=== PATIENT | female | born 1965 | race Hispanic/Latino ===

== ENCOUNTER → 2018-02-25 | Outpatient (CLI) | payer OTHER ==
[2018-02-25 17:04] LABS: ESTIMATED AVERAGE GLUCOSE 137 MG/DL (60-110); HEMOGLOBIN A1c 6.4 %
[2018-02-25 17:32] LABS: ALBUMIN 3.2 GM/DL (3.2-5.2); ALBUMIN/GLOBULIN RATIO 0.84 (1.00-1.93); ALKALINE PHOSPHATASE 129 U/L (45-117); ALT/SGPT 19 U/L (12-78); ANION GAP 7 MEQ/L (8-16); AST/SGOT 13 U/L (7-37); BILIRUBIN,TOTAL 0.3 MG/DL (0.2-1.0); BLOOD UREA NITROGEN 17 MG/DL (7-18); C REACTIVE PROTEIN QUANTITATIV 1.71 MG/DL (0.00-0.30); CALCIUM LEVEL 8.6 MG/DL (8.5-10.1); CARBON DIOXIDE LEVEL 25 MEQ/L (21-32); CHLORIDE LEVEL 107 MEQ/L (98-107); CREATININE FOR GFR 0.83 MG/DL (0.55-1.30); GLOMERULAR FILTRATION RATE > 60.0 (>51); GLUCOSE, FASTING 143 MG/DL (70-100); RHEUMATOID FACTOR QUANT < 10.0 IU/ML (<15.0); SODIUM LEVEL 139 MEQ/L (136-145)
[2018-02-25 17:34] LABS: ERYTHROCYTE SEDIMENTATION RATE 35 mm/hr (0-30)
[2018-02-27 10:18] LABS: ANTI DOUBLE STRAND-DNA AB <1 IU/mL (0-9); ANTINUCLEAR ANTIBODIES DIRECT Negative (Negative)
== END ==
LOC: M WUC 15:03
DX: Z13.9 Encounter for screening, unspecified (principal); M25.50 Pain in unspecified joint; E66.9 Obesity, unspecified
CPT/HCPCS: 84443

== ENCOUNTER → 2018-04-26 | Outpatient (REF) | payer OTHER ==
[2018-04-26 13:43] LABS: ERYTHROCYTE SEDIMENTATION RATE 30 mm/hr (0-30)
[2018-04-26 14:56] LABS: FOLATE 7.7 NG/ML; VITAMIN B12 LEVEL 489 PG/ML
[2018-04-26 15:29] LABS: RHEUMATOID FACTOR QUANT < 10.0 IU/ML (<15.0)
[2018-04-27 11:15] LABS: DRVV SCREEN 45.3 SEC
[2018-04-27 11:25] LABS: PTT LUPUS TYPE ANTICOAG SCREEN 1.1 (0-1.2)
[2018-05-03 08:59] LABS: ANTINUCLEAR ANTIBODIES DIRECT Negative (Negative); VITAMIN B1 LEVEL WHOLE BLOOD 147.4 nmol/L (66.5-200.0); VITAMIN B6,PYRIDOXAL PHOSPHATE 4.5 ug/L (2.0-32.8); VITAMIN E(GAMMA TOCOPHEROL) 1.7 mg/L (0.5-5.5)
== END ==
LOC: M LABNEURO 10:57
DX: M54.5 Low back pain (principal); M54.2 Cervicalgia

== ENCOUNTER → 2018-06-24 | Outpatient (REF) | payer OTHER ==
[2018-06-24 15:40] LABS: ESTIMATED AVERAGE GLUCOSE 134 MG/DL (60-110); HEMOGLOBIN A1c 6.3 %
[2018-06-24 15:43] LABS: ERYTHROCYTE SEDIMENTATION RATE 33 mm/hr (0-30)
[2018-06-24 15:49] LABS: C REACTIVE PROTEIN QUANTITATIV 1.65 MG/DL (0.00-0.30)
== END ==
LOC: M LAB REF 12:44
DX: Z13.9 Encounter for screening, unspecified (principal)

== ENCOUNTER → 2018-07-23 | Outpatient (CLI) | payer OTHER ==
[2018-07-23 16:22] LABS: HEMOGLOBIN 13.1 g/dl (12.0-15.5); MEAN CORPUSCULAR VOLUME 84.4 fl (80.0-96.0); PLATELET COUNT, AUTOMATED 319 10^3/uL (150-450); RED BLOOD COUNT 4.86 10^6/uL (4.00-5.40); RED CELL DISTRIBUTION WIDTH 14.7 % (11.5-14.5); WHITE BLOOD COUNT 12.2 10^3/uL (4.0-10.0)
[2018-07-23 16:40] LABS: ANION GAP 9 MEQ/L (8-16); BLOOD UREA NITROGEN 15 MG/DL (7-18); CARBON DIOXIDE LEVEL 23 MEQ/L (21-32); CHLORIDE LEVEL 108 MEQ/L (98-107); CHOLESTEROL LEVEL 165 MG/DL (<200); CHOLESTEROL RISK RATIO 4.342 (<5); CREATININE FOR GFR 0.76 MG/DL (0.55-1.30); GLOMERULAR FILTRATION RATE > 60.0 (>51); GLUCOSE, FASTING 82 MG/DL (70-100); HDL CHOLESTEROL 38 MG/DL (>40); LDL CHOLESTEROL 102 MG/DL (<100); NON-HDL-C 127 MG/DL; POTASSIUM SERUM 4.9 MEQ/L (3.5-5.1); SODIUM LEVEL 140 MEQ/L (136-145); TRIGLYCERIDES LEVEL 124 MG/DL (<150); TROPONIN I < 0.02 NG/ML (< 0.10)
== END ==
LOC: M LAB 15:12
DX: R07.9 Chest pain, unspecified (principal); E11.9 Type 2 diabetes mellitus without complications
CPT/HCPCS: 80061

== ENCOUNTER → 2020-04-19 | Outpatient (REF) | payer OTHER, MEDICAID ==
[2020-04-19 15:01] LABS: ALBUMIN 3.3 GM/DL (3.2-5.2); ALT/SGPT 24 U/L (12-78); BILIRUBIN,TOTAL 0.3 MG/DL (0.2-1.0); BLOOD UREA NITROGEN 15 MG/DL (7-18); CALCIUM LEVEL 9.2 MG/DL (8.5-10.1); CARBON DIOXIDE LEVEL 24 MEQ/L (21-32); CHLORIDE LEVEL 107 MEQ/L (98-107); CHOLESTEROL LEVEL 149 MG/DL (<200); GLOMERULAR FILTRATION RATE > 60.0 (>51); GLUCOSE, FASTING 173 MG/DL (70-100); HDL CHOLESTEROL 39 MG/DL (>40); LDL CHOLESTEROL 89 MG/DL (<100); NON-HDL-C 110 MG/DL; POTASSIUM SERUM 4.5 MEQ/L (3.5-5.1); SODIUM LEVEL 139 MEQ/L (136-145); TOTAL PROTEIN 7.3 GM/DL (6.4-8.2); TRIGLYCERIDES LEVEL 104 MG/DL (<150)
[2020-04-19 15:26] LABS: HEMOGLOBIN A1c 6.9 %
== END ==
LOC: M LAB REF 12:19
PROVIDERS: ATTEND Family Medicine Addiction Medicine
DX: Z00.01 Encounter for general adult medical examination with abnormal findings (principal); J45.30 Mild persistent asthma, uncomplicated; R73.03 Prediabetes

== ENCOUNTER → 2020-06-15 | Outpatient (CLI) | payer OTHER, MEDICAID ==
--- NOTE | 2020-07-09 17:38 | REP ---
LEFT ANKLE STUDY CLINICAL: Pain. TECHNIQUE: AP, lateral, and bilateral oblique of the left ankle. FINDINGS: Soft tissue swelling and age-related changes are appreciated. Ankle mortise appears intact. No definite acute fracture or dislocation is appreciated, although subtle injury cannot be excluded due to the overlying degenerative changes. IMPRESSION: Mild swelling and degenerative age-related changes. No obvious acute fracture or dislocation. If the patient remains symptomatic and there is a history of injury, consider CT for further investigation. GRADY
== END ==
LOC: M RAD 13:20
PROVIDERS: ATTEND Family Medicine Addiction Medicine
DX: M25.572 Pain in left ankle and joints of left foot (principal)

== ENCOUNTER → 2020-08-29 | Outpatient (REF) | payer OTHER, MEDICAID ==
[2020-08-29 13:42] LABS: HEMOGLOBIN A1c 6.4 %
[2020-08-29 14:00] LABS: ALBUMIN 3.4 GM/DL (3.2-5.2); ALT/SGPT 22 U/L (12-78); BILIRUBIN,TOTAL 0.5 MG/DL (0.2-1.0); BLOOD UREA NITROGEN 16 MG/DL (7-18); CALCIUM LEVEL 9.3 MG/DL (8.5-10.1); CARBON DIOXIDE LEVEL 24 MEQ/L (21-32); CHLORIDE LEVEL 107 MEQ/L (98-107); CHOLESTEROL LEVEL 178 MG/DL (<200); CHOLESTEROL RISK RATIO 3.869 (<5); CREATININE FOR GFR 0.86 MG/DL (0.55-1.30); GLOMERULAR FILTRATION RATE > 60.0 (>51); GLUCOSE, FASTING 117 MG/DL (70-100); HDL CHOLESTEROL 46 MG/DL (>40); LDL CHOLESTEROL 111 MG/DL (<100); NON-HDL-C 132 MG/DL; POTASSIUM SERUM 4.7 MEQ/L (3.5-5.1); SODIUM LEVEL 139 MEQ/L (136-145); TOTAL PROTEIN 7.6 GM/DL (6.4-8.2); TRIGLYCERIDES LEVEL 104 MG/DL (<150)
== END ==
LOC: M LAB REF 12:35
PROVIDERS: ATTEND Family Medicine Addiction Medicine
DX: R73.03 Prediabetes (principal)

== ENCOUNTER → 2021-01-23 | Outpatient (CLI) | payer OTHER ==
--- NOTE | 2021-01-24 16:45 | SLEEPHOME ---
DIAGNOSTIC HOME SLEEP STUDY DATE: 01/23/2021 ORDERED BY: RIAN Dial[facility] home sleep testing was performed due to concern for the obstructive sleep apnea syndrome in this patient with a history of excessive somnolence, snoring, and nonrestorative sleep. For testing, a nocturnal T3 respiratory monitoring device was used. Continuous record was made of pulse, oxygen saturation, air flow, chest and abdominal strain, and body position. 9 hours and 59 minutes of data were reviewed. There were 9 hours and 10 minutes marked as time in bed. During the interval marked time in bed, there were 56 respiratory events identified of 10 seconds in duration or greater for a respiratory event index 6.1. The events were obstructive, not exclusive to sleep position. Baseline pulse rate 68. Pulse rate range 53 to 164. Baseline saturation was 94%. Saturations fell to 80%. Testing was performed in both the supine and non-supine positions. IMPRESSION: Abnormal home sleep testing with repetitive respiratory events and oxygen desaturations to 80% with a respiratory event index of 6.1 is consistent with the obstructive sleep apnea syndrome. RECOMMENDATION: The patient should be encouraged to undergo further formal sleep evaluation.
== END ==
LOC: M SLEEP HO 14:06
PROVIDERS: ATTEND Nurse Practitioner Family
DX: R06.83 Snoring (principal)

== ENCOUNTER → 2021-02-01 | Outpatient (CLI) | payer OTHER ==
--- NOTE | 2021-02-01 08:24 | REP ---
INDICATION: LLQ PAIN COMPARISON: None. TECHNIQUE: Real time montanez scale ultrasound examination using curved array transducer. FINDINGS: The spleen is normal in contour and echogenicity measuring upper limits of normal at 10.5 x 9.8 x 6.4 cm (splenic index 659). Technologist describes some tenderness over the spleen during examination which is nonspecific. Left kidney is normal in reniform shape without hydronephrosis and measures 13.0 x 6.3 x 5.0 cm. IMPRESSION: Relatively unremarkable examination as above. Clinical correlation recommended. <Electronically signed by Jose Magdaleno > 02/01/21 1961
== END ==
LOC: M RAD 06:04
PROVIDERS: ATTEND Internal Medicine Gastroenterology
DX: R10.32 Left lower quadrant pain (principal)

== ENCOUNTER → 2021-03-07 | Outpatient (CLI) | payer OTHER ==
[2021-03-07 12:00] LABS: ALT/SGPT 24 U/L (12-78); BILIRUBIN,TOTAL 0.5 MG/DL (0.2-1.0); BLOOD UREA NITROGEN 15 MG/DL (7-18); CALCIUM LEVEL 9.6 MG/DL (8.5-10.1); CARBON DIOXIDE LEVEL 23 MEQ/L (21-32); CHLORIDE LEVEL 105 MEQ/L (98-107); CHOLESTEROL LEVEL 153 MG/DL (<200); CREATININE FOR GFR 0.94 MG/DL (0.55-1.30); GLOMERULAR FILTRATION RATE > 60.0 (>51); GLUCOSE, FASTING 153 MG/DL (70-100); POTASSIUM SERUM 4.5 MEQ/L (3.5-5.1); SODIUM LEVEL 137 MEQ/L (136-145); TRIGLYCERIDES LEVEL 103 MG/DL (<150)
[2021-03-07 12:01] LABS: ALBUMIN 3.6 GM/DL (3.2-5.2); CHOLESTEROL RISK RATIO 3.477 (<5); HDL CHOLESTEROL 44 MG/DL (>40); LDL CHOLESTEROL 88 MG/DL (<100); NON-HDL-C 109 MG/DL; TOTAL PROTEIN 7.6 GM/DL (6.4-8.2)
== END ==
LOC: M WUC 09:38
PROVIDERS: ATTEND Physician Assistant
DX: E11.65 Type 2 diabetes mellitus with hyperglycemia (principal)

== ENCOUNTER 2021-04-01 10:07 | Emergency (ER) | payer OTHER ==
[~2021-04-01] VITALS: Ht 157.5 cm; Wt 124.7 kg
[2021-04-01 11:36] LABS: BASO # 0.1 10^3/uL (0.0-0.2); BASO % 0.7 % (0.0-1.0); EOS # 0.3 10^3/uL (0.0-0.5); HEMATOCRIT 41.8 % (36.0-47.0); HEMOGLOBIN 13.1 g/dl (12.0-15.5); LYMPH # 2.6 10^3/uL (1.5-5.0); LYMPH % 24.8 % (24.0-44.0); MEAN CORPUSCULAR HEMOGLOBIN 27.6 pg (27.0-33.0); MEAN CORPUSCULAR HGB CONC 31.3 g/dl (32.0-36.5); MEAN CORPUSCULAR VOLUME 88.2 fl (80.0-96.0); MONO # 0.7 10^3/uL (0.0-0.8); MONO % 7.2 % (2.0-8.0); NEUTROPHILS # 6.6 10^3/uL (1.5-8.5); NEUTROPHILS % 63.6 % (36.0-66.0); PLATELET COUNT, AUTOMATED 301 10^3/uL (150-450); RED BLOOD COUNT 4.74 10^6/uL (4.00-5.40); WHITE BLOOD COUNT 10.3 10^3/uL (4.0-10.0)
--- NOTE | 2021-04-01 11:38 | REP ---
INDICATION: fall. COMPARISON: 01/23/2015 the latest prior FINDINGS: The superior mediastinal structures are midline. The cardiac silhouette is unremarkable in size, shape, and position. The diaphragmatic surfaces of the lungs are regular, and the costophrenic angles are clear. The pulmonary cr are clear. The imaged osseous structures are intact. IMPRESSION: There is no acute cardiopulmonary disease. No significant change from the prior exam. <Electronically signed by Marlon Carlson > 04/01/21 [id number]
--- NOTE | 2021-04-01 11:39 | REP ---
INDICATION: fall. COMPARISON: None. TECHNIQUE: Three views of the right shoulder were performed. FINDINGS: The acromioclavicular and glenohumeral relationships are within normal limits. There is no acute fracture or destructive osseous lesion. IMPRESSION: Within normal limits for age <Electronically signed by Marlon Carlson > 04/01/21 1134
[2021-04-01 12:06] LABS: ALBUMIN 3.3 GM/DL (3.2-5.2); ALT/SGPT 24 U/L (12-78); BILIRUBIN,DIRECT < 0.1 MG/DL (0.0-0.2); BILIRUBIN,TOTAL 0.3 MG/DL (0.2-1.0); CK-MB VALUE MASS < 1.0 NG/ML (<3.6); CPK CREATINE PHOSPHOKINASE 56 U/L (26-192); LIPASE 126 U/L (73-393); MB/CK RELATIVE INDEX 1.79 (< OR =4); TOTAL PROTEIN 7.3 GM/DL (6.4-8.2); TROPONIN I < 0.02 NG/ML (< 0.10)
[2021-04-01 13:27] VITALS: BP 184/92
[2021-04-01] MEDS ORDERED: amLODIPine 5 MG TAB PO ONE (13:30)
[2021-04-01 13:51] VITALS: BP 144/83
--- NOTE | 2021-04-01 15:40 | ECGEPIP ---
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
== END 2021-04-01 13:59 | disposition home or self-care (01) ==
LOC: M ED 10:07
DX: M25.511 Pain in right shoulder (principal); I10 Essential (primary) hypertension; R35.0 Frequency of micturition; R06.02 Shortness of breath; E11.9 Type 2 diabetes mellitus without complications

== ENCOUNTER → 2021-05-13 | Outpatient (CLI) | payer OTHER | LOC: M SLEEP 20:00 | PROVIDERS: ATTEND Nurse Practitioner Family | DX: G47.33 Obstructive sleep apnea (adult) (pediatric) (principal) ==

== ENCOUNTER → 2021-07-15 | Outpatient (CLI) | payer OTHER | LOC: M WHC 14:54 | PROVIDERS: ATTEND Nurse Practitioner Family | DX: Z12.31 Encounter for screening mammogram for malignant neoplasm of breast (principal); Z53.9 Procedure and treatment not carried out, unspecified reason ==

== ENCOUNTER → 2021-08-16 | Outpatient (CLI) | payer OTHER ==
--- NOTE | 2021-08-21 15:01 | REP ---
INDICATION: BILATERAL BREAST PAIN; BREAST PAIN. COMPARISON: 04/19/2020, 11/23/2014. TECHNIQUE: MLO and CC views bilateral breasts with tomosynthesis. Right breast ultrasound. FINDINGS: Mild fibroglandular tissue scattered bilaterally. There is a smoothly marginated 3 x 5 mm nodule in the superficial inferolateral right breast. This is not definitely seen on the prior studies performed without tomography. There is otherwise no evidence of mass, architectural distortion or clustered microcalcifications bilaterally. Focused right breast ultrasound in the lower outer right breast demonstrates no sonographic evidence of cystic or solid nodule. The Volpara volumetric breast density pattern is B. IMPRESSION: BIRADS/ACR category 3, probably benign. There is a smoothly marginated 3 x 5 mm nodule very superficially in the lower outer right breast which is not seen sonographically. This is probably benign. Recommend a follow-up right breast mammogram in 6 months. This patient's Tyrer-Cuzick lifetime breast cancer risk assessment score is 12.0%. This mammogram was interpreted with the aid of an FDA-approved computer-aided detection system. The patient states she had a clinical breast exam in June 2021. The patient letter being requested is M3. RECOMMENDATION: Recommend follow-up mammogram right breast in 6 months. <Electronically signed by Ronni Capps > 08/21/21 [id number]
== END ==
LOC: M WHC 09:13
PROVIDERS: ATTEND Pediatrics
DX: N64.4 Mastodynia (principal); N63.13 Unspecified lump in the right breast, lower outer quadrant
CPT/HCPCS: 76642; 77066; G0279

== ENCOUNTER → 2021-08-20 | Outpatient (CLI) | payer OTHER ==
[~2021-08-20] MED LIST: METHACHOLINE KIT (J7674) INH ONE
--- NOTE | 2021-08-20 10:44 | PFTRPT ---
Site: [facility], [address] [place], [address] ID: [id number] Name: ANJALI PAGAN Visit Date: 08/20/2021 Second ID: [id number] Referring Doctor: MIGDALIA LIZARRAGA Reviewing Doctor: Luc Bullock MD [employer] Attendant: Tracy VUONG RRT Age: 56 : 1965 Sex: Female Race: Height: 62.00 Inches Weight: 279.00 Lbs BSA: 2.20 Order IDs: [id number] Requested Test(s): <RESP-PFT.METH CHAL> Diagnosis: R06.00 of albuterol for post bronchodilator. Review Status: Not Reviewed Pre-Bronch Post-Bronch Pred Actual %Pred Actual %Chng SPIROMETRY FVC (L) 3.11 2.09 67 1.97 -5 FEV1 (L) 2.48 1.68 67 1.59 -5 FEV1/FVC (%) 80 80 100 81 FEF 25% (L/sec) 4.89 4.88 99 4.47 -8 FEF 50% (L/sec) 3.77 1.90 50 1.66 -12 FEF 75% (L/sec) 1.32 0.57 43 0.44 -22 FEF 25-75% (L/sec) 2.59 1.51 58 1.25 -17 FEF Max (L/sec) 6.05 5.08 84 4.76 -6 FIVC (L) 2.12 2.03 -4 FIF 50% (L/sec) 4.03 2.11 52 2.11 FIF Max (L/sec) 2.20 2.40 9 Expiratory Time (sec) 5.33 5.94 11 Back Extrap Vol (L) 0.08 0.09 14 Time To FEFmax (sec) 0.085 0.092 7
== END ==
LOC: M CARPUL 10:01
PROVIDERS: ATTEND Nurse Practitioner Family
DX: R06.00 Dyspnea, unspecified (principal)
CPT/HCPCS: 94070; 95070; J7674

== ENCOUNTER → 2021-12-12 | Outpatient (CLI) | payer OTHER | LOC: M WUC 14:19 | PROVIDERS: ATTEND Internal Medicine Pulmonary Disease | DX: J45.30 Mild persistent asthma, uncomplicated (principal) ==

== ENCOUNTER → 2022-02-27 | Outpatient (CLI) | payer OTHER ==
[2022-02-27 11:22] LABS: BLOOD UREA NITROGEN 15 MG/DL (7-18); CALCIUM LEVEL 9.2 MG/DL (8.5-10.1); CARBON DIOXIDE LEVEL 29 MEQ/L (21-32); CHLORIDE LEVEL 107 MEQ/L (98-107); GLOMERULAR FILTRATION RATE > 60.0 (>51); GLUCOSE, FASTING 133 MG/DL (70-100); POTASSIUM SERUM 4.8 MEQ/L (3.5-5.1); SODIUM LEVEL 140 MEQ/L (136-145)
== END ==
LOC: M LAB 08:59
PROVIDERS: ATTEND Pediatrics
DX: E11.69 Type 2 diabetes mellitus with other specified complication (principal)

== ENCOUNTER → 2022-02-28 | Outpatient (CLI) | payer OTHER | LOC: M PLAIMG 09:22 | PROVIDERS: ATTEND Family Medicine Addiction Medicine | DX: M79.601 Pain in right arm (principal); M25.511 Pain in right shoulder; M50.222 Other cervical disc displacement at C5-C6 level; M50.23 Other cervical disc displacement, cervicothoracic region; M48.02 Spinal stenosis, cervical region ==

== ENCOUNTER 2022-03-20 23:08 | Emergency (ER) | payer OTHER ==
[~2022-03-20] VITALS: Ht 157.5 cm; Wt 131.4 kg
[2022-03-21] MEDS ORDERED: amLODIPine 5 MG TAB PO ONE (01:50)
[2022-03-21] MEDS ORDERED: MORPHINE 4 MG/ML 1ML VIAL/SYRINGE IV ONE (01:50)
[2022-03-21 02:11] VITALS: BP 195/103
[2022-03-21 02:50] LABS: BASO # 0.1 10^3/uL (0.0-0.2); BASO % 0.3 % (0.0-1.0); EOS # 0.3 10^3/uL (0.0-0.5); EOS % 2.2 % (0.0-3.0); HEMATOCRIT 40.9 % (36.0-47.0); LYMPH # 2.3 10^3/uL (1.5-5.0); LYMPH % 16.1 % (24.0-44.0); MEAN CORPUSCULAR HEMOGLOBIN 27.3 pg (27.0-33.0); MEAN CORPUSCULAR HGB CONC 31.8 g/dl (32.0-36.5); MEAN CORPUSCULAR VOLUME 85.9 fl (80.0-96.0); MONO % 7.1 % (2.0-8.0); NEUTROPHILS # 10.6 10^3/uL (1.5-8.5); NEUTROPHILS % 73.7 % (36.0-66.0); PLATELET COUNT, AUTOMATED 328 10^3/uL (150-450); RED BLOOD COUNT 4.76 10^6/uL (4.00-5.40); WHITE BLOOD COUNT 14.4 10^3/uL (4.0-10.0)
[2022-03-21 03:18] LABS: BLOOD UREA NITROGEN 12 MG/DL (7-18); CALCIUM LEVEL 9.2 MG/DL (8.5-10.1); CARBON DIOXIDE LEVEL 25 MEQ/L (21-32); CHLORIDE LEVEL 107 MEQ/L (98-107); CREATININE FOR GFR 0.79 MG/DL (0.55-1.30); GLOMERULAR FILTRATION RATE > 60.0 (>51); GLUCOSE, FASTING 148 MG/DL (70-100); POTASSIUM SERUM 5.1 MEQ/L (3.5-5.1); SODIUM LEVEL 140 MEQ/L (136-145)
[2022-03-21] MEDS ORDERED: AMPICILLIN SOD/SULBACTAM SOD 3 GM in D5W MINI-BAG PLUS 100 ML IV ONE (03:40)
[2022-03-21] MEDS ORDERED: ISOVUE-370 76% 100ML VIAL As Ordered ONE (03:44)
[2022-03-21] MEDS ORDERED: AMOX875T2 PO (06:17)
[2022-03-21 06:29] VITALS: BP 153/82
== END 2022-03-21 06:41 | disposition home or self-care (01) ==
LOC: M ED 23:08
DX: K08.89 Other specified disorders of teeth and supporting structures (principal); R22.0 Localized swelling, mass and lump, head; E11.9 Type 2 diabetes mellitus without complications; I10 Essential (primary) hypertension
CPT/HCPCS: 70487; 71046; 80048; 85025; 93005; 93041; 94760; 96365; 96375; 99285; J0295; J2270; Q9967

== ENCOUNTER → 2022-07-30 | Outpatient (CLI) | payer OTHER ==
[~2022-07-30] MED LIST changes: +AMOX875T2 PO; -METHACHOLINE KIT (J7674) INH ONE
== END ==
LOC: M SOG 08:23
PROVIDERS: ATTEND Orthopaedic Surgery
DX: M19.011 Primary osteoarthritis, right shoulder (principal); M50.321 Other cervical disc degeneration at C4-C5 level; M50.322 Other cervical disc degeneration at C5-C6 level; M50.33 Other cervical disc degeneration, cervicothoracic region; M43.22 Fusion of spine, cervical region; M43.12 Spondylolisthesis, cervical region

== ENCOUNTER 2022-08-28 15:15 | Outpatient (RCR) | payer OTHER | END 2022-09-10 | LOC: M PT 15:15 | PROVIDERS: ATTEND Orthopaedic Surgery | DX: M13.811 Other specified arthritis, right shoulder (principal) ==

== ENCOUNTER → 2022-12-08 | Outpatient (REF) | payer OTHER ==
[2022-12-08 17:02] LABS: BASO # 0.1 10^3/uL (0.0-0.2); BASO % 0.5 % (0.0-1.0); EOS # 0.4 10^3/uL (0.0-0.5); EOS % 3.4 % (0.0-3.0); HEMATOCRIT 42.2 % (36.0-47.0); HEMOGLOBIN 13.1 g/dl (12.0-15.5); LYMPH # 2.8 10^3/uL (1.5-5.0); MEAN CORPUSCULAR HEMOGLOBIN 27.3 pg (27.0-33.0); MEAN CORPUSCULAR VOLUME 88.1 fl (80.0-96.0); MONO # 0.8 10^3/uL (0.0-0.8); MONO % 7.5 % (2.0-8.0); NEUTROPHILS # 6.4 10^3/uL (1.5-8.5); PLATELET COUNT, AUTOMATED 289 10^3/uL (150-450); RED BLOOD COUNT 4.79 10^6/uL (4.00-5.40); WHITE BLOOD COUNT 10.5 10^3/uL (4.0-10.0)
[2022-12-08 17:16] LABS: ERYTHROCYTE SEDIMENTATION RATE 63 mm/hr (0-30)
[2022-12-08 17:21] LABS: RHEUMATOID FACTOR QUANT < 3.5 IU/ML (<14)
[2022-12-08 17:24] LABS: ALBUMIN 3.3 G/DL (3.2-5.2); ALKALINE PHOSPHATASE 151 U/L (46-116); ALT/SGPT 24 U/L (7.0-40); AST/SGOT 18 U/L (<34); BILIRUBIN,TOTAL 0.5 MG/DL (0.3-1.2); BLOOD UREA NITROGEN 13 MG/DL (9-23); CALCIUM LEVEL 8.9 MG/DL (8.5-10.1); CARBON DIOXIDE LEVEL 24 MMOL/L (20-31); CHLORIDE LEVEL 104 MMOL/L (98-107); CHOLESTEROL LEVEL 128 MG/DL (<200); CREATININE FOR GFR 0.72 MG/DL (0.55-1.30); GLOMERULAR FILTRATION RATE > 60.0 (>51); GLUCOSE, FASTING 167 MG/DL (60-100); HDL CHOLESTEROL 38.7 MG/DL (>40); LDL CHOLESTEROL 72.5 MG/DL (<100); NON-HDL-C 89 MG/DL; POTASSIUM SERUM 5.3 MMOL/L (3.5-5.1); SODIUM LEVEL 137 MMOL/L (136-145); TOTAL PROTEIN 6.9 G/DL (5.7-8.2); TRIGLYCERIDES LEVEL 84 MG/DL (<150)
[2022-12-08 17:31] LABS: HEMOGLOBIN A1c 7.1 % (4.0-6.0)
[2022-12-10 23:07] LABS: ANA (HEP2) Negative (.); CYCLIC CITRULLINATED PEPTIDE 3 units (0-19); SSA SJOGRENS A <0.2 AI (0.0-0.9); SSB SJOGRENS B <0.2 AI (0.0-0.9)
== END ==
LOC: M LAB REF 12:10
PROVIDERS: ATTEND Family Medicine Addiction Medicine
DX: M25.50 Pain in unspecified joint (principal); E11.9 Type 2 diabetes mellitus without complications

== ENCOUNTER → 2023-04-08 | Outpatient (REF) | payer OTHER ==
[~2023-04-08] MED LIST changes: +ALBU8.5H INH; +AMLO1TAB25 PO; +CARV6.25 PO; +FLUT1BLS16 INH; +GLIP5TAB20 PO; +LEXA1TAB PO; +LISI40TA4 PO; +MELO7.5T35 PO; +PANT40TA29 PO
[2023-04-08 17:52] LABS: ALBUMIN 3.5 G/DL (3.2-5.2); ALKALINE PHOSPHATASE 142 U/L (46-116); ALT/SGPT 11 U/L (7.0-40); AST/SGOT 20 U/L (<34); BILIRUBIN,TOTAL 0.4 MG/DL (0.3-1.2); BLOOD UREA NITROGEN 19 MG/DL (9-23); CALCIUM LEVEL 8.9 MG/DL (8.5-10.1); CARBON DIOXIDE LEVEL 24 MMOL/L (20-31); CHLORIDE LEVEL 108 MMOL/L (98-107); CREATININE FOR GFR 0.79 MG/DL (0.55-1.30); GLOMERULAR FILTRATION RATE > 60.0 (>51); GLUCOSE, FASTING 121 MG/DL (60-100); HEMOGLOBIN A1c 7.6 % (4.0-6.0); POTASSIUM SERUM 5.1 MMOL/L (3.5-5.1); SODIUM LEVEL 139 MMOL/L (136-145); TOTAL PROTEIN 6.9 G/DL (5.7-8.2)
[2023-04-08 17:55] LABS: THYROID STIMULATING HORMONE 1.031 uIU/ML (0.55-4.78)
== END ==
LOC: M LAB REF 16:19
PROVIDERS: ATTEND Pediatrics
DX: E11.69 Type 2 diabetes mellitus with other specified complication (principal)

== ENCOUNTER → 2023-05-13 | Outpatient (CLI) | payer OTHER | LOC: M WHC 12:44 | PROVIDERS: ATTEND Pediatrics | DX: Z12.31 Encounter for screening mammogram for malignant neoplasm of breast (principal) ==

== ENCOUNTER → 2023-08-10 | Outpatient (REF) | payer OTHER | LOC: CANPREREF → M LABSMT 09:19 | PROVIDERS: ATTEND Specialist | DX: N32.81 Overactive bladder (principal); Z53.9 Procedure and treatment not carried out, unspecified reason ==

== ENCOUNTER → 2023-10-13 | Outpatient (REF) | LOC: M PLAIMG 14:58 | PROVIDERS: ATTEND Internal Medicine | DX: M43.16 Spondylolisthesis, lumbar region (principal); M41.86 Other forms of scoliosis, lumbar region; M47.816 Spondylosis without myelopathy or radiculopathy, lumbar region; M54.50 Low back pain, unspecified; M25.562 Pain in left knee; M17.12 Unilateral primary osteoarthritis, left knee ==

== ENCOUNTER → 2023-11-26 | Outpatient (REF) | payer OTHER ==
[2023-11-26 19:03] LABS: CREATININE, URINE 231.4 MG/DL
== END ==
LOC: M LAB REF 17:29
PROVIDERS: ATTEND Nurse Practitioner Family
DX: E11.65 Type 2 diabetes mellitus with hyperglycemia (principal)

== ENCOUNTER → 2023-12-03 | Outpatient (REF) | payer OTHER ==
[2023-12-03 17:55] LABS: AMORPHOUS SEDIMENT SMALL (NEGATIVE); APPEARANCE, URINE TURBID (CLEAR); BACTERIA, URINE AUTO NEGATIVE (NEGATIVE); BILIRUBIN, URINE AUTO NEGATIVE (NEGATIVE); BLOOD, URINE BLOOD NEGATIVE (NEGATIVE); COLOR, URINE YELLOW (YELLOW); GLUCOSE, URINE (UA) AUTO NEGATIVE (NEGATIVE); KETONE, URINE AUTO NEGATIVE (NEGATIVE); LEUKOCYTE ESTERASE, URINE AUTO NEGATIVE (NEGATIVE); NITRITE, URINE AUTO NEGATIVE (NEGATIVE); PROTEIN, URINE AUTO NEGATIVE (NEGATIVE); RBC, URINE AUTO 0 /HPF (0-3); SPECIFIC GRAVITY URINE AUTO 1.023 (1.002-1.035); SQUAMOUS EPITHELIAL CELL UR AU 1 /HPF (0-6); UROBILINOGEN, URINE AUTO 0.2 mg/dL (0.0-2.0); WBC, URINE AUTO 0 /HPF (0-3)
== END ==
LOC: M SMT 17:08
PROVIDERS: ATTEND Specialist
DX: N32.81 Overactive bladder (principal)

== ENCOUNTER → 2024-08-24 | Outpatient (CLI) | payer OTHER | LOC: M SOG 10:38 | PROVIDERS: ATTEND Physician Assistant | DX: M19.011 Primary osteoarthritis, right shoulder (principal); M85.811 Other specified disorders of bone density and structure, right shoulder ==

== ENCOUNTER → 2024-09-23 | Outpatient (CLI) | payer OTHER | LOC: M SOG 07:51 | PROVIDERS: ATTEND Physician Assistant | DX: M79.641 Pain in right hand (principal) ==

== ENCOUNTER 2024-10-07 14:13 | Outpatient (RCR) | payer OTHER | END 2024-10-11 | LOC: M PT 14:13 | PROVIDERS: ATTEND Physician Assistant | DX: M19.011 Primary osteoarthritis, right shoulder (principal); M25.511 Pain in right shoulder ==

== ENCOUNTER → 2024-10-07 | Outpatient (CLI) | payer OTHER ==
[2024-10-07 12:37] LABS: BLOOD UREA NITROGEN 17 MG/DL (9-23); CALCIUM LEVEL 9.3 MG/DL (8.5-10.1); CARBON DIOXIDE LEVEL 25 MMOL/L (20-31); CHLORIDE LEVEL 107 MMOL/L (98-107); CREATININE FOR GFR 0.76 MG/DL (0.55-1.30); GLOMERULAR FILTRATION RATE > 60.0 (>51); GLUCOSE, FASTING 204 MG/DL (60-100); POTASSIUM SERUM 4.9 MMOL/L (3.5-5.1); SODIUM LEVEL 140 MMOL/L (136-145)
== END ==
LOC: M LAB 11:36
PROVIDERS: ATTEND Physician Assistant
DX: R22.31 Localized swelling, mass and lump, right upper limb (principal)

== ENCOUNTER 2024-10-14 14:14 | Outpatient (RCR) | payer OTHER | END 2024-11-11 | LOC: M PT 14:14 | PROVIDERS: ATTEND Physician Assistant | DX: M19.011 Primary osteoarthritis, right shoulder (principal); M25.511 Pain in right shoulder ==

== ENCOUNTER → 2024-12-13 | Outpatient (CLI) | payer OTHER ==
[2024-12-13 10:23] LABS: BASO # 0.1 10^3/uL (0.0-0.2); BASO % 0.5 % (0.0-1.0); EOS # 0.4 10^3/uL (0.0-0.5); EOS % 3.7 % (0.0-3.0); HEMATOCRIT 43.5 % (36.0-47.0); HEMOGLOBIN 13.9 g/dl (12.0-15.5); LYMPH # 2.6 10^3/uL (1.5-5.0); LYMPH % 26.1 % (24.0-44.0); MEAN CORPUSCULAR VOLUME 87.5 fl (80.0-96.0); MONO # 0.6 10^3/uL (0.0-0.8); MONO % 6.3 % (2.0-8.0); NEUTROPHILS # 6.1 10^3/uL (1.5-8.5); NEUTROPHILS % 62.9 % (36.0-66.0); PLATELET COUNT, AUTOMATED 303 10^3/uL (150-450); RED BLOOD COUNT 4.97 10^6/uL (4.00-5.40); WHITE BLOOD COUNT 9.8 10^3/uL (4.0-10.0)
[2024-12-13 10:57] LABS: ALBUMIN 3.3 G/DL (3.2-5.2); ALKALINE PHOSPHATASE 151 U/L (35-104); ALT/SGPT 20 U/L (7.0-40); AST/SGOT 14 U/L (<34); BILIRUBIN,TOTAL 0.5 MG/DL (0.3-1.2); BLOOD UREA NITROGEN 14 MG/DL (9-23); CALCIUM LEVEL 9.4 MG/DL (8.5-10.1); CARBON DIOXIDE LEVEL 25 MMOL/L (20-31); CHLORIDE LEVEL 106 MMOL/L (98-107); CHOLESTEROL LEVEL 160 MG/DL (<200); CHOLESTEROL RISK RATIO 3.62 (<5); CREATININE FOR GFR 0.76 MG/DL (0.55-1.30); GLOMERULAR FILTRATION RATE > 60.0 (>51); GLUCOSE, FASTING 154 MG/DL (60-100); HDL CHOLESTEROL 44.1 MG/DL (>40); LDL CHOLESTEROL 96.5 MG/DL (<100); NON-HDL-C 115.9 MG/DL; POTASSIUM SERUM 5.1 MMOL/L (3.5-5.1); SODIUM LEVEL 138 MMOL/L (136-145); TOTAL PROTEIN 7.1 G/DL (5.7-8.2); TRIGLYCERIDES LEVEL 97 MG/DL (<150)
[2024-12-13 10:59] LABS: FREE T4 1.17 NG/DL (0.89-1.76); THYROID STIMULATING HORMONE 2.067 uIU/ML (0.55-4.78); TOTAL 25(OH) VITAMIN D 18.1 NG/ML (20.0-100.0)
[2024-12-13 11:39] LABS: HEMOGLOBIN A1c 7.5 % (4.0-6.0)
== END ==
LOC: M LAB 09:29
PROVIDERS: ATTEND Nurse Practitioner Adult Health
DX: E11.9 Type 2 diabetes mellitus without complications (principal)

== ENCOUNTER 2025-07-27 12:45 | Outpatient (RCR) | payer OTHER ==
[~2025-07-27 12:45] MED LIST changes: +GLIP-318 PO; -GLIP5TAB20 PO; +LISI40TA10 PO; -LISI40TA4 PO
== END 2025-08-11 ==
LOC: M PT 12:45
DX: M54.50 Low back pain, unspecified (principal)